=== PATIENT | female | born 1945 | race African-American/Black ===

== ENCOUNTER 2017-07-27 22:14 | Emergency (ER) | payer MEDICARE, OTHER ==
[~2017-07-27 22:14] MED LIST: LOSA100T3 PO; PROM6.256 PO; TRAM50TA PO; ZOSTINJ SQ
[2017-07-27 22:16] VITALS: BP 138/82; PULSE 97; RESP 16; TEMP 98.6; O2SAT 97
[2017-07-27 22:45] VITALS: BP 132/62; PULSE 72; RESP 18; O2SAT 99
[2017-07-27] MEDS ORDERED: PANTOPRAZOLE SODIUM 40 MG VIAL IV PUSH ONE (23:00)
--- NOTE | 2017-07-27 23:27 | RADRPT ---
EXAM DATE/TIME: 07/27/2017 23:15 [place] COMPARISON: CHEST PA & LAT, September 15, 2015, 5:49. INDICATIONS : Choked earlier and feels like cornbread stuck in throat MEDICAL HISTORY : Hypertension. Asthma SURGICAL HISTORY : Hysterectomy. ENCOUNTER: Initial ACUITY: 1 day PAIN SCORE: 5/10 LOCATION: Bilateral chest FINDINGS: Portable AP view of the chest demonstrates a normal-sized cardiac silhouette. No effusion, consolidat ion, or pneumothorax is visualized. The bones and soft tissues demonstrate no acute abnormality. Lung s are underinflated. CONCLUSION: No acute cardiopulmonary abnormality is identified. Matthias López MD on July 27, 2017 at 23:25 Board Certified Radiologist. This report was verified electronically.
[2017-07-27] MEDS ORDERED: PROT40TA PO (23:28)
--- NOTE | 2017-07-27 23:28 | PD ---
HPI Chief Complaint: Foreign Body Time Seen by Provider: 22:40 Travel History International Travel<30 days: No Contact w/Intl Traveler<30days: No Traveled to known affect area: No History of Present Illness HPI The patient is a 72 year old female who presents to the [facility] emergency department with a history of pain with swallowing that began when she was eating cornbread at approximately 8:30 PM this evening. The patient reports that she had similar symptoms with eating chicken in January of this year for the first time. She reports that she went to the emergency department and was observed. She reports that she was able to tolerate drinking fluids, therefore she was discharged home. She denies following up with a GI doctor. She reports that she does have a history of acid reflux symptoms, however she does not take medication for it. She reports that she intermittently has belching with acid reflux. The patient denies coughing with eating. She reports that when she was eating a piece of cornbread she felt like it got stuck in her throat. She reports that she is however able to drink sips of liquids and tolerate swallowing her own secretions. On review of systems, the patient denies any recent fevers, cough, congestion, neck pain, chest pain, shortness of breath, abdominal pain, vomiting, diarrhea, urinary symptoms, or neurologic symptoms. [facility] Past Medical History Narrative Medical The patient's past medical history is significant for hypertension, asthma, arthritis, acid reflux Arthritis: Yes Asthma: Yes Cardiovascular Problems: Yes (HIGH BP) Diminished Hearing: No Hypertension: Yes Respiratory: Yes (ASTHMA) Immunizations Current: Yes ?: Not Menopausal: Yes Past Surgical History Narrative Surgical The patient's past surgical history is significant for a bladder lift, hysterectomy. Genitourinary Surgery: Yes (BLADDER TUCK) Hysterectomy: Yes Social History Alcohol Use: No Tobacco Use: No Substance Use: No Allergies-Medications (Allergen,Severity, Reaction): Coded Allergies: brompheniramine (Unverified Allergy, Severe, SOB, 07/27/17) erythromycin base (Unverified Allergy, Severe, Itching, 07/27/17) penicillin G (Unverified Allergy, Severe, ITCHING, 07/27/17) phenylpropanolamine (Unverified Allergy, Severe, SOB, 07/27/17) Sulfa (Sulfonamide Antibiotics) (Unverified Adverse Reaction, Intermediate , SHAKING, 07/27/17) Reported Meds & Prescriptions Reported Meds & Active Scripts Active Protonix (Pantoprazole Sodium) 40 Mg Tab 40 Mg PO DAILY Tramadol (Tramadol HCl) 50 Mg Tab 100 Mg PO Q6H PRN 1-2 every four hours for chronic arthritis pain Promethazine-Codeine Liq 6.25-10 Mg/5 Ml Syrp 10 Ml PO Q4H PRN Zostavax Inj (Zoster Vaccine Live) 0.65 Ml Inj 0.65 Ml SQ .ONCE Losartan-Hydrochlorothiazide 100-12.5 Mg Tab 1 Tab PO DAILY Review of Systems Except as stated in HPI: all other systems reviewed are Neg General / Constitutional: No: Fever Eyes: No: Visual changes HENT: Positive: Neck Pain, Other (sensation of food being stuck in her throat.) , No: Headaches Cardiovascular: No: Chest Pain or Discomfort, Dyspnea on exertion Respiratory: No: Cough, Shortness of Breath Gastrointestinal: No: Nausea, Vomiting, Diarrhea, Abdominal Pain Genitourinary: No: Dysuria Musculoskeletal: No: Pain Skin: No Rash Neurologic: No: Weakness Psychiatric: No: Depression Endocrine: No: Polydipsia Hematologic/Lymphatic: No: Easy Bruising Physical Exam Narrative General: The patient is a well-developed well-nourished female in no acute distress. Head and Neck exam: Head is normocephalic atraumatic. Eyes: EOMI, pupils are equal round and reactive to light. Nose: Midline septum with pink mucous membranes Mouth: Dentition unremarkable. Moist mucus membranes. Posterior oropharynx is not erythematous. No tonsillar hypertrophy. Uvula midline. Airway patent. Neck: No palpable lymphadenopathy. No nuchal rigidity. No thyromegaly. Cardiovascular: Regular rate and rhythm without murmurs, gallops, or rubs. Lungs: Clear to auscultation bilaterally. No wheezes, rhonchi, or rales. Abdomen: Soft, without tenderness to palpation in all 4 quadrants of the abdomen. No guarding, rebound, or rigidity. Normal bowel sounds are audible. No tenderness on palpation of McBurney's point. Extremities: No clubbing, cyanosis, or edema. 2+ pulses in all 4 extremities. No calf tenderness on palpation. Back: No costovertebral angle tenderness to palpation. Neurologic Exam: Grossly nonfocal. Skin Exam: No rash noted. Intact skin that is warm and dry. Data Data Last Documented VS Vital Signs Date Time Temp Pulse Resp B/P (MAP) Pulse Ox O2 Delivery O2 Flow Rate FiO2 07/28/17 02:25 07/28/17 00:28 65 18 99 Room Air 07/27/17 22:16 98.6 Orders Orders Electrocardiogram (07/27/17 22:54) Complete Blood Count With Diff (07/27/17 22:54) Comprehensive Metabolic Panel (07/27/17 22:54) Creatine Kinase (Cpk) (07/27/17 22:54) Ckmb (Isoenzyme) Profile (07/27/17 22:54) Troponin I (07/27/17 22:54) Prothrombin Time / Inr (Pt) (07/27/17 22:54) Act Partial Throm Time (Ptt) (07/27/17 22:54) Lipase (07/27/17 22:54) Magnesium (Mg) (07/27/17 22:54) Chest, Single Ap (07/27/17 22:54) Iv Access Insert/Monitor (07/27/17 22:54) Ecg Monitoring (07/27/17 22:54) Oximetry (07/27/17 22:54) Oral Rehydration (07/27/17 22:54) Pantoprazole Inj (Protonix Inj) (07/27/17 23:00) CKMB (07/27/17 23:55) CKMB% (07/27/17 23:55) Labs Laboratory Tests Test 07/27/17 23:55 White Blood Count 5.5 TH/MM3 Red Blood Count 3.36 MIL/MM3 Hemoglobin 10.4 GM/DL Hematocrit 30.5 % Mean Corpuscular Volume 90.6 FL Mean Corpuscular Hemoglobin 31.1 PG Mean Corpuscular Hemoglobin Concent 34.3 % Red Cell Distribution Width 13.1 % Platelet Count 230 TH/MM3 Mean Platelet Volume 7.8 FL Neutrophils (%) (Auto) 49.3 % Lymphocytes (%) (Auto) 42.6 % Monocytes (%) (Auto) 5.6 % Eosinophils (%) (Auto) 1.6 % Basophils (%) (Auto) 0.9 % Neutrophils # (Auto) 2.7 TH/MM3 Lymphocytes # (Auto) 2.3 TH/MM3 Monocytes # (Auto) 0.3 TH/MM3 Eosinophils # (Auto) 0.1 TH/MM3 Basophils # (Auto) 0.1 TH/MM3 CBC Comment DIFF FINAL Differential Comment Prothrombin Time 10.8 SEC Prothromb Time International Ratio 1.0 RATIO Activated Partial Thromboplast Time 25.1 SEC Blood Urea Nitrogen 18 MG/DL Creatinine 1.29 MG/DL Random Glucose 117 MG/DL Total Protein 7.1 GM/DL Albumin 3.4 GM/DL Calcium Level 8.5 MG/DL Magnesium Level 2.1 MG/DL Alkaline Phosphatase 99 U/L Aspartate Amino Transf (AST/SGOT) 8 U/L Alanine Aminotransferase (ALT/SGPT) 14 U/L Total Bilirubin 0.3 MG/DL Sodium Level 139 MEQ/L Potassium Level 3.6 MEQ/L Chloride Level 106 MEQ/L Carbon Dioxide Level 26.5 MEQ/L Anion Gap 7 MEQ/L Estimat Glomerular Filtration Rate 49 ML/MIN Total Creatine Kinase 152 U/L Creatine Kinase MB 0.8 NG/ML Troponin I LESS THAN 0.02 NG/ML Lipase 123 U/L MDM Medical Decision Making Medical Screen Exam Complete: Yes Emergency Medical Condition: Yes Medical Record Reviewed: Yes Interpretation(s) Last Impressions Chest X-Ray 07/27/17 2259 Signed Impressions: Service Date/Time: Thursday, July 27, 2017 23:15 - CONCLUSION: No acute cardiopulmonary abnormality is identified. Matthias López MD Vital Signs Date Time Temp Pulse Resp B/P (MAP) Pulse Ox O2 Delivery O2 Flow Rate FiO2 07/28/17 02:25 07/28/17 00:28 65 18 131/61 (84) 99 Room Air 07/27/17 22:45 18 99 Room Air 07/27/17 22:45 72 18 132/62 (85) 99 Room Air 07/27/17 22:16 98.6 97 16 138/82 (100) 97 Room Air Differential Diagnosis Esophageal stricture, versus esophageal obstruction, versus aspiration pneumonia , versus acid reflux, versus acute coronary syndrome. Narrative Course During the course of the patients emergency department visit, the patients history, examination, and differential diagnosis were reviewed with the patient. The patient had IV access obtained and blood work sent for analysis. The patient was placed on a classroom monitor with oximetry and blood pressure monitoring. An ECG was ordered. The patient was provided a cup of water. The patient was able to sip this slowly without any vomiting. The patient had an ECG done on arrival that shows a sinus rhythm heart rate of 65, QRS duration is 102 ms, QTC 423 ms, no acute ST segment elevation or depression. The patient was initially provided Protonix 40 mg IV. The patients laboratory studies were reviewed and remarkable for a white count of 5.5, hemoglobin 10.4, platelets 230 with a normal differential, CMP is remarkable for creatinine 1.29, glucose 117, AST 8, CPK 152, troponin I less than 0.02, lipase 123. PT 10.8, PTT 25.1. Radiology studies were reviewed and remarkable for a chest x-ray that showed no evidence of acute cardiopulmonary abnormality. The patient was able to tolerate by mouth liquids without any vomiting. She was able to tolerate her own secretions. The patient will be discharged home to follow-up with a shoe handler. The patient was also sent home with a prescription for Protonix. The patient is resting comfortably and feels better, is alert and in no distress. The patients results and examination findings were discussed with the patient. The repeat examination is unremarkable and benign. The history, exam, diagnostic testing, and current condition do not suggest any significant pathology to warrant further testing, continued ED treatment, admission, or surgical evaluation at this point. The vital signs have been stable. The patient does not have uncontrollable pain, intractable vomiting, or other significant symptoms. The patient's condition is stable and appropriate for discharge. The patient will pursue further outpatient evaluation with a primary care physician or other designated or consulting physician as indicated in the discharge instructions. The patient expressed understanding and was agreeable with this plan. Diagnosis Primary Impression: Sensation of foreign body in esophagus Referrals: Carlos Manuel Novoa MD 2 days Dayanara Inman MD 2 days Patient Instructions: General Instructions Med/Other Pt SpecificInfo: Prescription(s) given Scripts Pantoprazole (Protonix) 40 Mg Tab 40 MG PO DAILY for Reflux, #30 TAB 0 Refills Prov: Liz Christina MD 07/27/17 Disposition: 01 DISCHARGE HOME Condition: Stable Liz Christina MD Jul 27, 2017 23:28
[2017-07-28 00:09] LABS: AUTOMATED NEUTROPHIL # 2.7 TH/MM3 (1.8-7.7); BASOPHIL # 0.1 TH/MM3 (0-0.2); BASOPHIL % 0.9 % (0.0-2.0); EOSINOPHIL # 0.1 TH/MM3 (0-0.4); EOSINOPHIL % 1.6 % (0.0-4.0); HEMATOCRIT 30.5 % (35.0-46.0); HEMO FLAGS DIFF FINAL; LYMPH % 42.6 % (9.0-44.0); LYMPHOCYTE # 2.3 TH/MM3 (1.0-4.8); MEAN CELL VOLUME 90.6 FL (80.0-100.0); MEAN CORPUSCULAR HEMOGLOBIN 31.1 PG (27.0-34.0); MEAN CORPUSCULAR HGB CONC 34.3 % (32.0-36.0); MONO % 5.6 % (0.0-8.0); NEUT % 49.3 % (16.0-70.0); PLATELET COUNT 230 TH/MM3 (150-450); RED BLOOD COUNT 3.36 MIL/MM3 (4.00-5.30); RED CELL DISTRIBUTION WIDTH 13.1 % (11.6-17.2); WHITE BLOOD COUNT 5.5 TH/MM3 (4.0-11.0)
[2017-07-28 00:24] LABS: ANION GAP 7 MEQ/L (5-15); APTT (PATIENT) 25.1 SEC (24.3-30.1); AST (GOT) 8 U/L (15-37); BICARBONATE 26.5 MEQ/L (21.0-32.0); BLOOD UREA NITROGEN 18 MG/DL (7-18); CHLORIDE 106 MEQ/L (98-107); GLOMERULAR FILTRATION RATE 49 ML/MIN (>89); MAGNESIUM 2.1 MG/DL (1.5-2.5); POTASSIUM 3.6 MEQ/L (3.5-5.1); PROTHROMBIN TIME - PATIENT 10.8 SEC (9.8-11.6); SODIUM (NA) 139 MEQ/L (136-145)
[2017-07-28 00:25] LABS: ALT (GPT) 14 U/L (10-53)
[2017-07-28 00:28] VITALS: BP 131/61; PULSE 65; RESP 18; O2SAT 99
[2017-07-28 00:29] LABS: ALKALINE PHOSPHATASE 99 U/L (45-117); CREATINE KINASE 152 U/L (26-192); TOTAL BILIRUBIN ADULT 0.3 MG/DL (0.2-1.0)
[2017-07-28 00:41] LABS: CKMB 0.8 NG/ML (0.5-3.6)
--- NOTE | 2017-07-28 14:26 | EKG ---
Date Performed: 07/27/2017 Time Performed: 23:50:03 PTAGE: 72 years EKG: Sinus rhythm NORMAL ECG PREVIOUS TRACING : 04/24/2014 00.57 DOCTOR: Ramón Gilliland Interpretating Date/Time 07/28/2017 14:25:06
[2017-08-06] MEDS ORDERED: DEXA4VIA IM (16:05)
[2017-08-06] MEDS ORDERED: PRED50 PO (16:06)
[2017-08-12] MEDS ORDERED: TRAM50TA PO (16:02)
[2017-08-19] MEDS ORDERED: PRED50 PO (15:22)
[2017-08-26] MEDS ORDERED: NEBULIZER1 MI1 (12:30)
[2017-08-26] MEDS ORDERED: IPRASOL INH (12:30)
[2017-09-22] MEDS ORDERED: LIDO1PAD52 TOPICAL (16:37)
[2017-09-22] MEDS ORDERED: PRED50 PO (17:05)
[2017-09-22] MEDS ORDERED: AZIT500T2 PO (17:05)
[2017-09-22] MEDS ORDERED: GLYC2SUP RECTAL (17:05)
[2017-09-22] MEDS ORDERED: MIRA3350 PO (17:05)
== END 2017-07-28 02:25 | disposition home or self-care (01) ==
LOC: NEPE 22:14
DX: J39.2 Other diseases of pharynx (principal); I10 Essential (primary) hypertension; K21.9 Gastro-esophageal reflux disease without esophagitis; J45.909 Unspecified asthma, uncomplicated; M19.90 Unspecified osteoarthritis, unspecified site; R07.9 Chest pain, unspecified
CPT/HCPCS: 71010; 80053; 82550; 82552; 83690; 83735; 84484; 85025; 85610; 85730; 93005; 96374; 99285; C9113

== ENCOUNTER 2017-07-29 21:49 | Emergency (ER) | payer MEDICARE ==
[~2017-07-29] VITALS: Ht 167.6 cm; Wt 118.0 kg
[~2017-07-29 21:49] MED LIST changes: +PROT40TA PO
[2017-07-29 21:51] VITALS: BP 235/108; PULSE 80; RESP 15; TEMP 98.4; O2SAT 98
[2017-07-29 22:08] VITALS: BP 160/113; PULSE 128; RESP 16; O2SAT 99
[2017-07-29 23:07] VITALS: PULSE 79
--- NOTE | 2017-07-29 23:07 | PD ---
HPI Chief Complaint: GI Complaint Time Seen by Provider: 22:38 Travel History International Travel<30 days: No Contact w/Intl Traveler<30days: No Traveled to known affect area: No History of Present Illness HPI 72yo F with PMH of HTN, asthma, acid reflex presents to the ED with c/o foreign body sensation in throat again. Pt states she was eating mac and cheese at around 8:30pm and felt some of it is stuck in her throat. Pt is able to drink liquids after. Denies any sob, choking, chest pain, fever, n/v, abdominal pain. Pt was just seen at [place] on 07/27/17 for the same symptoms. Pt was given protonix 40mg IV and had negative CXR and labs. Pt was discharge to follow up with GI but states she has appointment with PMD this Friday to get referral for GI. PFSH Past Medical History Arthritis: Yes Asthma: Yes Cardiovascular Problems: Yes (HTN) Diminished Hearing: No Hypertension: Yes Respiratory: Yes (ASTHMA) Immunizations Current: No Tetanus Vaccination: < 5 Years Influenza Vaccination: Yes ?: Not Menopausal: Yes : 7 Para: 7 Past Surgical History Section: No Genitourinary Surgery: Yes (BLADDER TUCK) Hysterectomy: Yes Social History Alcohol Use: No Tobacco Use: No Substance Use: No Allergies-Medications (Allergen,Severity, Reaction): Coded Allergies: brompheniramine (Unverified Allergy, Severe, SOB, 07/27/17) erythromycin base (Unverified Allergy, Severe, Itching, 07/27/17) penicillin G (Unverified Allergy, Severe, ITCHING, 07/27/17) phenylpropanolamine (Unverified Allergy, Severe, SOB, 07/27/17) Sulfa (Sulfonamide Antibiotics) (Unverified Adverse Reaction, Intermediate , SHAKING, 07/27/17) Reported Meds & Prescriptions Reported Meds & Active Scripts Active Protonix (Pantoprazole Sodium) 40 Mg Tab 40 Mg PO DAILY Tramadol (Tramadol HCl) 50 Mg Tab 100 Mg PO Q6H PRN 1-2 every four hours for chronic arthritis pain Promethazine-Codeine Liq 6.25-10 Mg/5 Ml Syrp 10 Ml PO Q4H PRN Zostavax Inj (Zoster Vaccine Live) 0.65 Ml Inj 0.65 Ml SQ .ONCE Losartan-Hydrochlorothiazide 100-12.5 Mg Tab 1 Tab PO DAILY Review of Systems Except as stated in HPI: all other systems reviewed are Neg Physical Exam Narrative GENERAL: 72yo F not in distress. SKIN: Focused skin assessment warm/dry. HEAD: Atraumatic. Normocephalic. EYES: Pupils equal and round. No scleral icterus. No injection or drainage. ENT: No nasal bleeding or discharge. Mucous membranes pink and moist. Throat: Uvula midline. Patent airway. NECK: Trachea midline. No JVD. CARDIOVASCULAR: Regular rate and rhythm. No murmur appreciated. RESPIRATORY: No accessory muscle use. Clear to auscultation. Breath sounds equal bilaterally. GASTROINTESTINAL: Abdomen soft, non-tender, nondistended. MUSCULOSKELETAL: No obvious deformities. No clubbing. No cyanosis. No edema. NEUROLOGICAL: Awake and alert. No obvious cranial nerve deficits. Motor grossly within normal limits. Normal speech. PSYCHIATRIC: Appropriate mood and affect; insight and judgment normal. Data Data Last Documented VS Vital Signs Date Time Temp Pulse Resp B/P (MAP) Pulse Ox O2 Delivery O2 Flow Rate FiO2 07/29/17 23:40 07/29/17 23:07 79 07/29/17 22:08 16 99 07/29/17 21:51 98.4 Room Air Orders Orders Pantoprazole Inj (Protonix Inj) (07/29/17 23:15) [facility] Medical Decision Making Medical Screen Exam Complete: Yes Emergency Medical Condition: Yes Differential Diagnosis Foreign body sensation in throat vs. achalasia Narrative Course 72yo F with foreign body sensation in throat after eating mac and cheese today. Pt is able to drink fluid afterwards and also able to swallow secretions. She is not in distress. Denies any sob. I ordered protonix because she was given it last time she was here and said it helped. However, when the nurse went to give the medication, she said that she was going to go home. I was in the middle of procedural sedation at the time and she did not wait for me to come out to talk to her. Pt is not in distress and knows she needs GI follow up. Diagnosis Primary Impression: Foreign body sensation in throat Patient Instructions: General Instructions Departure Forms: Tests/Procedures Additional Instructions: Please follow up with GI as an outpatient. Return to the ED if symptoms worsen. Med/Other Pt SpecificInfo: No Change to Meds Disposition: 01 DISCHARGE HOME Condition: Stable Amanda Thomas DO Jul 29, 2017 23:07
[2017-07-29] MEDS ORDERED: PANTOPRAZOLE SODIUM 40 MG VIAL IV PUSH ONE (23:15)
[2017-08-06] MEDS ORDERED: DEXA4VIA IM (16:05)
[2017-08-06] MEDS ORDERED: PRED50 PO (16:06)
[2017-08-12] MEDS ORDERED: TRAM50TA PO (16:02)
[2017-08-19] MEDS ORDERED: PRED50 PO (15:22)
[2017-08-26] MEDS ORDERED: IPRASOL INH (12:30)
[2017-08-26] MEDS ORDERED: NEBULIZER1 MI1 (12:30)
[2017-09-22] MEDS ORDERED: LIDO1PAD52 TOPICAL (16:37)
[2017-09-22] MEDS ORDERED: PRED50 PO (17:05)
[2017-09-22] MEDS ORDERED: MIRA3350 PO (17:05)
[2017-09-22] MEDS ORDERED: GLYC2SUP RECTAL (17:05)
[2017-09-22] MEDS ORDERED: AZIT500T2 PO (17:05)
== END 2017-07-29 23:40 | disposition left against medical advice (07) ==
LOC: NEPC 21:49
DX: R09.89 Other specified symptoms and signs involving the circulatory and respiratory systems (principal); M13.80 Other specified arthritis, unspecified site; J45.909 Unspecified asthma, uncomplicated; I10 Essential (primary) hypertension; Z88.0 Allergy status to penicillin; Z88.2 Allergy status to sulfonamides; Z88.1 Allergy status to other antibiotic agents; Z79.899 Other long term (current) drug therapy; Z88.8 Allergy status to other drugs, medicaments and biological substances
CPT/HCPCS: 99281